=== PATIENT | female | born 1985 | race Hispanic/Latino ===

== ENCOUNTER 2019-01-16 08:59 | Emergency (ER) | payer OTHER ==
[2019-01-16 09:31] VITALS: BP 145/73
[2019-01-16] MEDS ORDERED: BUTALB/ACETAMINOPHEN/CAFFEINE TAB PO ONE (10:33)
--- NOTE | 2019-01-16 10:59 | Emergency Department Report ---
HPI - General Chief Complaint: Headache Time Seen by Provider: 01/16/19 10:23 - HPI HPI: 33-year-old female presents to the emergency department with complaint of a generalized headache for the past 24 hours. She says that she also has some sensitivity to light. She denies any fever, nausea, vomiting, neck stiffness. Patient does have a history of recurrent headaches during her menstrual cycle but she is not currently on her cycle. She also has a history of asthma and a tubal ligation. She took some off brand type of aqoo-nwi-tialhcg aspirin medication yesterday for her symptoms without any relief. No primary care physician. No recent travel or sick contacts at home. ED Past Medical Hx - Past Medical History Previous Medical History?: Yes Hx Headaches / Migraines: Yes Hx Asthma: Yes - Surgical History Past Surgical History?: Yes Additional Surgical History: Tubal ligation - Social History Smoking Status: Never Smoker Substance Use Type: None - Medications Home Medications: Home Medications Medication Instructions Recorded Confirmed Last Taken Type Butalb/Acetamin/Caff 50-325-40 1 tab PO Q8HR PRN #12 tablet 01/16/19 Unknown Rx [Fioricet 50-325-40] ED Review of Systems ROS: Stated complaint: HEADACHE 24 HRS Other details as noted in HPI Comment: All other systems reviewed and negative Constitutional: denies: chills, fever Eyes: other (photophobia). denies: eye pain Neurological: headache. denies: weakness, numbness, paresthesias, confusion Physical Exam - Physical Exam Vital Signs: Vital Signs 01/16/19 09:29 Temperature 98.7 F Pulse Rate 78 Respiratory 20 Rate Blood Pressure 145/73 O2 Sat by Pulse 98 Oximetry Physical Exam: GENERAL: The patient is well-developed well-nourished. HENT: Normocephalic. Atraumatic. Patient has moist mucous membranes. EYES: Extraocular motions are intact. Pupils equal reactive to light bila terally. No nystagmus. NECK: Supple. Trachea is midline. CHEST/LUNGS: Clear to auscultation. There is no respiratory distress noted. HEART/CARDIOVASCULAR: Regular. There is no tachycardia. There is no murmur. ABDOMEN: Abdomen is soft, nontender. Patient has normal bowel sounds. Morbidly obese habitus. SKIN: Skin is warm and dry. NEURO: The patient is awake, alert, and oriented. The patient is cooperative. The patient has no focal neurologic deficits. Normal speech. Cranial nerves II through XII grossly intact. No facial asymmetry. MUSCULOSKELETAL: There is no tenderness or deformity. There is no evidence of acute injury. ED Course Vital Signs 01/16/19 09:29 Temperature 98.7 F Pulse Rate 78 Respiratory 20 Rate Blood Pressure 145/73 O2 Sat by Pulse 98 Oximetry ED Medical Decision Making - Radiology Data Radiology results: report reviewed CT head without contrast INDICATION : headache. TECHNIQUE: Axial imaging performed from the skull apex through the skull base without the use of contrast. All CT scans at this location are performed using CT dose reduction for ALARA by means of automated exposure control. COMPARISON: None FINDINGS: Parenchyma: No abnormal density. No mass or mass effect. No hemorrhage. Ventricles: Ventricles are normal in size and appear symmetric. Soft tissues: Soft tissues including the orbits appear normal. Bones: No acute osseous abnormality. Sinuses: Sinuses and mastoid air cells are clear. IMPRESSION: Normal head CT. - Medical Decision Making This patient presents with a 24-hour history of a generalized headache, along with some photophobia. On examination she does not have any focal, motor or sensory deficits in her cranial nerves are intact. CT scan of the head without contrast was done that does not show any bleed, shift, mass, ischemia, or any other acute process. She was given a dose of Fioricet, and later a dose of morphine, and upon reevaluation she is feeling greatly improved. She was seen ambulatory upon discharge and both appears and feels stable. Headache is down to about a 2 out of 10. She'll be given a referral for primary care and neurology. She has been given a prescription for some Fioricet. She has been instructed to return to the emergency Department with any worsening of her symptoms or any acute distress. - Differential Diagnosis migraine, tension headache, subarachnoid, cluster Critical Care Time: No Critical care attestation.: If time is entered above; I have spent that time in minutes in the direct care of this critically ill patient, excluding procedure time. ED Disposition Clinical Impression: Headache Qualifiers: Headache type: unspecified Headache chronicity pattern: unspecified pattern Intractability: not intractable Qualified Code(s): R51 - Headache Disposition: DC-01 TO HOME OR SELFCARE Is pt being admited?: No Condition: Stable Instructions: Acute Headache (ED) Additional Instructions: Please follow-up with a primary care physician in the next few days. Return to the emergency Department with any worsening of your symptoms or any acute distress. You have been prescribed a medication that is sedating and therefore should not be taken prior to driving, working, and responsible for children and in no way should be mixed with alcohol of any quantity. Prescriptions: Butalb/Acetamin/Caff 50-325-40 [Fioricet 50-325-40] 1 tab PO Q8HR PRN #12 tablet PRN Reason: Headache Referrals: ALVAREZ CAVAZOS MD [Staff Physician] - 2-3 Days LUNA DICKERSON MD [Referring] - 2-3 Days [facility] [Outside] - 2-3 Days Time of Disposition: 13:52
--- NOTE | 2019-01-16 12:09 | Cat Scan Report ---
CT head without contrast INDICATION : headache. TECHNIQUE: Axial imaging performed from the skull apex through the skull base without the use of con trast. All CT scans at this location are performed using CT dose reduction for ALARA by means of aut omated exposure control. COMPARISON: None FINDINGS: Parenchyma: No abnormal density. No mass or mass effect. No hemorrhage. Ventricles: Ventricles are normal in size and appear symmetric. Soft tissues: Soft tissues including the orbits appear normal. Bones: No acute osseous abnormality. Sinuses: Sinuses and mastoid air cells are clear. IMPRESSION: Normal head CT. Signer Name: Giorgio Mccall MD Signed: 01/16/2019 12:05 PM Workstation Name: [id number]
[2019-01-16] MEDS ORDERED: MORPHINE 4 MG/1 ML INJ IM ONE (12:10)
[2019-01-16] MEDS ORDERED: ONDANSETRON 4 MG ODT TAB PO ONE (13:14)
== END 2019-01-16 14:07 | disposition home or self-care (01) ==
LOC: ED 08:59
DX: G43.909 Migraine, unspecified, not intractable, without status migrainosus (principal); J45.909 Unspecified asthma, uncomplicated; Z98.51 Tubal ligation status; Z88.6 Allergy status to analgesic agent
CPT/HCPCS: 70450; 96372; 99284; J2270; Q0162

== ENCOUNTER 2019-06-28 09:17 | Day surgery (SDC) | payer OTHER ==
--- NOTE | 2019-06-27 14:43 | Short Stay Summary ---
Short Stay Documentation Date of service: 06/28/19 Narrative H&P: 33y/o with findings of high grade cervical dysplasia on a cervical biopsy at 12 o'clock. The patient elects to proceed with surgical management. Patient has been reassessed/reevaluated/re-examined. H&P has been reviewed. No interval changes. - History Principal diagnosis: cervical dysplasia Past Medical History: other (asthma; morbid obesity) Past Surgical History: Other (tubal ligation) Social history: - Allergies and Medications Current Medications: Allergies meloxicam [From Mobic] Allergy (Verified 06/27/19 13:05) Unknown Home Medications Medication Instructions Recorded Confirmed Last Taken Type Butalb/Acetamin/Caff 50-325-40 1 tab PO Q8HR PRN #12 tablet 01/16/19 Unknown Rx [Fioricet 50-325-40] - Physical exam General appearance: no acute distress Integumentary: no rash HEENT: Atraumatic Lungs: Clear to auscultation Breasts: deferred Heart: Regular rate Gastrointestinal: normal Female Genitourinary: deferred Rectal Exam: deferred Extremities: no ischemia Neurological: Normal gait - Brief post op/procedure progress note Date of procedure: 06/28/19 Pre-op diagnosis: Cervical dysplasia Post-op diagnosis: same Procedure: Loop electrocautery excision procedure Endocervical curettage Anesthesia: GETA Surgeon: EDYTA KENT Estimated blood loss: minimal Pathology: list (Ectocervix, endocervical curetting) Specimen disposition: to lab Condition: stable - Hospital course Hospital course: Patient was admitted the day of surgery underwent a LEEP procedure. Please see operative note for details of surgery. Her postoperative course was uneventful. - Disposition Condition at discharge: Good - Discharge Diagnoses (1) Cervical dysplasia Status: Acute Short Stay Discharge Plan Activity: other (Pelvic rest for 4 weeks) Diet: regular Additional Instructions: Schedule follow-up with Dr. Kent and in 4 weeks Prescriptions: Ibuprofen [Motrin] 800 mg PO Q8HR PRN #60 tablet PRN Reason: Pain, Mild (1-3) HYDROcodone/APAP 5-325 [Alma 5/325] 1 each PO Q6HR PRN #20 tablet PRN Reason: Pain
[~2019-06-28 09:17] MED LIST: ceFAZolin/Water 2 GM/20 ML 2 GM/20 ML SYRINGE IV NR
[2019-06-28] MEDS ORDERED: LACTATED RINGERS 1,000 ML ONE (09:45)
[2019-06-28] MEDS ORDERED: ONDANSETRON 4 MG/2 ML INJ IV PRN (10:03)
[2019-06-28] MEDS ORDERED: fentaNYL 100 MCG/2 ML INJ IV PRN (10:03)
--- NOTE | 2019-06-28 10:04 | Anesthesia Day of Surgery ---
Anesthesia Day of Surgery - Day of Surgery Patient Examined: Yes Patient H&P Reviewed: Yes Patient is NPO: Yes
--- NOTE | 2019-06-28 10:07 | Anesthesia Consultation ---
Anesthesia Consult and Med Hx Date of service: 06/28/19 - Airway Anesthetic Teeth Evaluation: Poor, Chipped ROM Head & Neck: Adequate Mental/Hyoid Distance: Adequate Mallampati Class: Class III Intubation Access Assessment: Probably Good - Pre-Operative Health Status ASA Pre-Surgery Classification: ASA3 Proposed Anesthetic Plan: General - Pulmonary Hx Smoking: Yes (former) Hx Asthma: Yes (Last treated 2 weeks ago) Hx Respiratory Symptoms: Yes (Unable to climb 2FS) - Cardiovascular System Hx Hypertension: No (Had CP a year ago and had negative ECG per pt) - Central Nervous System Hx Neuromuscular Disorder: Yes (Migraines) Hx Back Pain: Yes Hx Psychiatric Problems: Yes (Depression) - Gastrointestinal Hx Gastroesophageal Reflux Disease: Yes (PRN OTC Ranitidine) - Endocrine Hx Renal Disease: Yes (Stones in the past) - Other Systems Hx Cancer: No Hx Obesity: Yes
[2019-06-28] MEDS ORDERED: propofoL 200 MG/20 ML VIAL IV ONE (10:21)
[2019-06-28] MEDS ORDERED: LIDOCAINE MPF (2%) 20 MG/1 ML VIAL 5 ML ONE (10:21)
[2019-06-28] MEDS ORDERED: HYDROmorphone 1 MG/1 ML INJ ONE (10:21)
[2019-06-28] MEDS ORDERED: MIDAZOLAM 2 MG/2 ML INJ IV NR (11:00)
[2019-06-28] MEDS ORDERED: LACTATED RINGERS 1,000 ML IV SCH (11:00)
[2019-06-28] MEDS ORDERED: FERRIC SUBSULFATE TOPICAL SOLN 8 ML TP ONE ×2 (11:35→12:19)
[2019-06-28] MEDS ORDERED: POTASSIUM IODIDE/IODINE (LUGOLS) 30 ML TP ONE ×2 (11:35→12:18)
[2019-06-28] MEDS ORDERED: SODIUM CHLORIDE 0.9% IRR 1,500 ML BOTTLE IR ONE (12:22)
--- NOTE | 2019-06-28 12:28 | Operative Report ---
Operative Report Operative Report: Date of procedure: June 28, 2019 Pre-operative diagnosis: Severe cervical dysplasia Post-operative diagnosis: Same as above Procedure name(s): Loop electrocautery excision procedure; endocervical curettage Surgeon: Katie York M.D. Estimated blood loss: Minimal Anesthesia: General endotracheal anesthesia Pathology: Ectocervix and endocervical curettings Findings Multiparous cervix Indication: 33-year-old -0-1-2 with a history of focal high-grade squamous intraepithelial lesion. Procedure The patient was admitted the day of surgery and underwent went general anesthesia without complication. A timeout was performed to confirm the patient's identity and procedure. The patient was prepped and draped in a normal sterile fashion. A bivalve coated speculum was placed in the patient's vagina. Lugol's solution was placed on the cervix. A 20 x 12 mm loop was used in order to excise the ectocervix with cautery. An endocervical curettage was then performed. The cervical bed was cauterized with the Bovie. The vaginal instruments were then removed atraumatically. The patient was then successfully extubated and taken to the recovery room in stable condition. All sponge laps and needle counts correct x2.
[2019-06-28] MEDS ORDERED: HYDROcodone/ACETAMINOPHEN 5-325 MG TAB PO PRN (12:59)
[2019-06-28 13:20] VITALS: BP 115/75
--- NOTE | 2019-06-28 18:02 | Post Anesthesia Evaluation ---
- Post Anesthesia Evaluation Patient Participated: Yes Airway Patent: Yes Stable Respiratory Function: Yes Nausea/Vomiting: No Temp > 96.8F: Yes Pain Manageable: Yes Adequeate Hydration: Yes Anesthesia Complications: No Block Receding Appropriately: Not Applicable Patient on Ventilator: No
== END 2019-06-28 13:55 | disposition home or self-care (01) ==
LOC: OR 09:17
PROVIDERS: ATTEND Obstetrics & Gynecology
DX: D06.7 Carcinoma in situ of other parts of cervix (principal); G43.909 Migraine, unspecified, not intractable, without status migrainosus; J45.909 Unspecified asthma, uncomplicated; K21.9 Gastro-esophageal reflux disease without esophagitis; E66.9 Obesity, unspecified; M19.90 Unspecified osteoarthritis, unspecified site; F32.9 Major depressive disorder, single episode, unspecified; Z98.890 Other specified postprocedural states; Z88.8 Allergy status to other drugs, medicaments and biological substances; Z79.899 Other long term (current) drug therapy; Z87.891 Personal history of nicotine dependence; Z98.51 Tubal ligation status
CPT/HCPCS: 57522; 81025; 88305; 88307; J0690; J1170; J2250; J2405; J2704; J3010; J7120